=== PATIENT | male | born 1970 | race Caucasian/White ===

== ENCOUNTER 2019-02-25 10:07 | Emergency (ER) | payer MEDICARE ==
[2019-02-25] MEDS ORDERED: ASPIRIN 81 MG CHEWABLE TABLET PO ONE (10:24)
[2019-02-25] MEDS ORDERED: KETOROLAC 30 MG/ML VIAL IVP ONE (10:24)
--- NOTE | 2019-02-25 10:27 | Emergency Department Record ---
History of Present Illness - General Chief Complaint: Back Pain/Injury Stated Complaint: BACK PAIN Time Seen by Provider: 02/25/19 10:24 Source: Patient, Family (mom and sister) Mode of Arrival: EMS - History of Present Illness Initial Comments: patient is having right posterior chest pain which started yesterday and worse with palpation and raising his right arm over his head. patient is anxious because his brother one month ago from cancer in hospise Onset/Timin -: Days(s) Similar Symptoms Previously: No Place: Home Radiation: None Severity scale (1-10): 4 Quality: Aching Consistency: Constant Improves With: None Worsens With: None Context: Unknown Associated Symptoms: Denies other symptoms - Related Data Home Medications Medication Instructions Recorded Confirmed Last Taken Amlodipine Besylate [Norvasc] 10 mg PO DAILY 02/25/19 02/25/19 02/25/19 Atorvastatin Calcium 40 mg PO DAILY 02/25/19 02/25/19 02/25/19 Cetirizine HCl [Allergy Relief] 10 mg PO DAILY 02/25/19 02/25/19 02/25/19 Cholecalciferol (Vitamin D3) 1,000 unit PO DAILY 02/25/19 02/25/19 Unknown [Vitamin D3] Clonazepam 1 mg PO QHS 02/25/19 02/25/19 Unknown Latanoprost 0.005% Opth Kalie 1 drop AFFEYE QHS 02/25/19 02/25/19 Unknown [Xalatan] Metoprolol Succinate [Toprol Xl] 50 mg PO DAILY 02/25/19 02/25/19 02/25/19 Zonisamide 100 mg PO DAILY 02/25/19 02/25/19 02/25/19 Previous Rx's Medication Instructions Recorded Hydroxyzine Pamoate [Vistaril] 25 mg PO Q6H #30 capsule 02/25/19 Allergies Allergy/AdvReac Type Severity Reaction Status Date / Time No Known Drug Allergies Allergy Verified 02/24/14 07:05 Travel Screening - Travel/Exposure Within Last 30 Days Have you traveled within the last 30 days?: No Review of Systems Reviewed: No additional complaints except as noted below Constitutional: Reports: As per HPI. Denies: Chills, Fever, Malaise, Night sweats, Weakness, Weight change Eyes: Reports: As per HPI. Denies: Eye discharge, Eye pain, Photophobia, Vision change ENT: Reports: As per HPI, Congestion. Denies: Dental pain, Ear pain, Epistaxis, Hearing loss, Throat pain Respiratory: Reports: As per HPI. Denies: Cough, Dyspnea, Hemoptysis, Stridor, Wheezes Cardiovascular: Reports: As per HPI, Chest pain. Denies: Arrhythmia, Dyspnea on exertion, Edema, Murmurs, Orthopnea, Palpitations, Paroxysmal nocturnal dyspnea, Rheumatic Fever, Syncope Endocrine: Reports: As per HPI. Denies: Fatigue, Heat or cold intolerance, Polydipsia, Polyuria Gastrointestinal: Reports: As per HPI. Denies: Abdominal pain, Constipation, Diarrhea, Hematemesis, Hematochezia, Melena, Nausea, Vomiting Genitourinary: Reports: As per HPI. Denies: Dysuria, Frequency, Hematuria, Incontinence, Retention, Testicular pain, Testicular mass, Urgency Musculoskeletal: Reports: As per HPI. Denies: Arthralgia, Back pain, Gout, Joint swelling, Myalgia, Neck pain Skin: Reports: As per HPI. Denies: Bruising, Change in color, Change in hair/nails, Lesions, Pruritus, Rash Neurological: Reports: As per HPI. Denies: Abnormal gait, Confusion, Headache, Numbness, Paresthesias, Seizure, Tingling, Tremors, Vertigo, Weakness Psychiatric: Reports: As per HPI. Denies: Anxiety, Auditory hallucinations, Depression, Homicidal thoughts, Suicidal thoughts, Visual hallucinations Hematological/Lymphatic: Reports: As per HPI. Denies: Anemia, Blood Clots, Easy bleeding, Easy bruising, Swollen glands Past Medical History - SOCIAL HISTORY Smoking Status: Never smoker - RESPIRATORY Hx Respiratory Disorders: No - CARDIOVASCULAR Hx Cardio Disorders: Yes Hx Hypertension: Yes Comment:: high cholesterol - NEURO Hx Neuro Disorders: Yes Hx Seizures: Yes - GI Hx GI Disorders: No - Hx Genitourinary Disorders: No - ENDOCRINE Hx Endocrine Disorders: No - MUSCULOSKELETAL Hx Musculoskeletal Disorders: No - PSYCH Hx Psych Problems: No - HEMATOLOGY/ONCOLOGY Hx Hematology/Oncology Disorders: No Family Medical History Any Significant Family History?: Yes Hx Cancer: Grandparents Hx Dementia: Father Hx Diabetes: Father, Mother Hx HTN: Father, Mother Physical Exam - General General Appearance: Alert, Oriented x3, Cooperative, No acute distress, Anxious - Head Head exam: Normal inspection - Eye Eye exam: Normal appearance, PERRL Pupils: Normal accommodation - ENT ENT exam: Normal exam, Mucous membranes moist, Normal external ear exam, Normal orophraynx, TM's normal bilaterally Ear exam: Normal external inspection. negative: External canal tenderness Nasal Exam: Normal inspection. negative: Discharge, Sinus tenderness Mouth exam: Normal external inspection, Tongue normal Teeth exam: Normal inspection. negative: Dental caries Throat exam: Normal inspection. negative: Tonsillar erythema, Tonsillar exudate - Neck Neck exam: Normal inspection, Full ROM. negative: Tenderness - Respiratory Respiratory exam: Normal lung sounds bilaterally. negative: Respiratory distress - Cardiovascular Cardiovascular Exam: Regular rate, Normal rhythm, Normal heart sounds - GI/Abdominal GI/Abdominal exam: Soft, Normal bowel sounds. negative: Tenderness - Rectal Rectal exam: Deferred - exam: Deferred - Extremities Extremities exam: Normal inspection, Full ROM, Normal capillary refill. negative: Tenderness - Back Back exam: Reports: Normal inspection, Full ROM. Denies: Muscle spasm, Rash noted, Tenderness - Neurological Neurological exam: Alert, Normal gait, Oriented X3, Reflexes normal - Psychiatric Psychiatric exam: Normal affect, Normal mood - Skin Skin exam: Dry, Intact, Normal color, Warm Course Vital Signs 02/25/19 10:11 Temperature 98.8 F Pulse Rate 103 H Respiratory 20 Rate Blood Pressure 131/95 Pulse Ox 97 Medical Decision Making - Data Complexity MDM Data: Labs Ordered and/or Reviewed (labs negative with the urine pending), X-Ray Ordered and/or Reviewed (chest xray negative, CT of abd and pelvis essentially neg), EKG Ordered and/or Reviewed (NSR, no acute changes) - Lab Data Result diagrams: 02/25/19 09:55 02/25/19 09:55 Disposition Clinical Impression: Anxiety Thoracic myofascial strain Qualifiers: Encounter type: initial encounter Qualified Code(s): S29.019A - Strain of muscle and tendon of unspecified wall of thorax, initial encounter Disposition: Home, Self-Care Condition: (1) Good Instructions: Thoracic Back Strain (ED) Additional Instructions: follow up with Dr rg next week use ibuprofin or motrin two pills three times a day for pain Prescriptions: Hydroxyzine Pamoate [Vistaril] 25 mg PO Q6H #30 capsule Forms: Patient Portal Access Time of Disposition: 13:56 Quality - Quality Measures Quality Measures: N/A - Blood Pressure Screening Does Patient Have Any of the Following: No, Active Dx of HTN Blood Pressure Classification: Hypertensive Reading Systolic Measurement: 131 Diastolic Measurement: 95 Screening for High Blood Pressure: Patient Exclusion, Hx of HTN [[id number]]
[2019-02-25 10:36] LABS: BASO % 0.5 % (0-6); EOS % 0.6 % (0-6); GRAN % 59.7 % (47-80); HEMATOCRIT 45.2 % (42.0-52.0); HEMOGLOBIN 15.1 gm/dl (14.0-18.0); MEAN CELL VOLUME 89.7 fl (81-97); MEAN CORPUSCULAR HGB CONC 33.4 g/dl (32-36); MEAN PLATELET VOLUME 9.8 fl (7.4-10.4); MONO % 5.2 % (0-9); PLATELET COUNT 376 K/uL (130-400); RED BLOOD COUNT 5.04 M/uL (4.40-5.70); RED CELL DISTRIBUTION WIDTH 13.2 % (11.5-14.5); WHITE BLOOD COUNT W/O DIFF 9.7 K/uL (4.2-12.2)
[2019-02-25 10:44] LABS: BLOOD UREA NITROGEN 14 mg/dL (6-20); CREATININE 1.1 mg/dL (0.7-1.2); EST GLOMERULAR FILTRATION RATE > 60 mL/min
[2019-02-25 10:47] LABS: GLUCOSE,RANDOM 119 mg/dL (74-109)
[2019-02-25 12:09] LABS: URINE APPEARANCE CLEAR; URINE BILIRUBIN NEGATIVE (NEGATIVE); URINE BLOOD TRACE-I (NEGATIVE); URINE COLOR YELLOW; URINE GLUCOSE (UA) NEGATIVE (NEGATIVE); URINE KETONE NEGATIVE (NEGATIVE); URINE LEUKOCYTE ESTERASE NEGATIVE (NEGATIVE); URINE NITRITE NEGATIVE (NEGATIVE); URINE PROTEIN NEGATIVE (NEGATIVE); URINE UROBILINOGEN 0.2 E.U./dL (0.20 - 1.00)
[2019-02-25 12:17] LABS: URINE EPITHELIAL CELLS NONE SEEN (FEW); URINE RBC 0 - 2 (NONE SEEN); URINE WBC NONE SEEN (0-2/hpf)
--- NOTE | 2019-02-27 06:08 | CT SCAN REPORT ---
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 RIGHT FLANK PAIN. TECHNIQUE: Helical CT examination of the abdomen and pelvis is performed without oral or intravenous contrast administration. Lack of oral and IV contrast utilization limits evaluation of the bowel and solid viscera respectively. COMPARISON: None. FINDINGS: The examination is mildly limited by patient motion. There is a somewhat mosaic pattern of the lung bases. This is nonspecific. This can be seen with obstructive small airways disease. No lung base consolidation, pleural effusion, or pericardial effusion. The heart is not enlarged. No focal abnormality is demonstrated within the liver, spleen, pancreas, nor adrenal glands. Mild hepatic steatosis is questioned. The gallbladder is unremarkable and no biliary ductal dilatation is seen. The kidneys are normal in size and position and are smoothly marginated. Minor perinephric fat stranding is identified bilaterally likely chronic. No definite nephrolithiasis nor renal mass. The renal collecting systems are nondilated. No ureteral calculus is visualized. No intra-abdominal nor retroperitoneal lymphadenopathy. The vasculature, as visualized, is normal in appearance. No pelvic mass, lymphadenopathy, or free pelvic fluid. No intrinsic urinary bladder abnormality is seen. No gross bowel dilatation nor bowel wall thickening. The appendix is at least partially visualized and normal in appearance. No free intraperitoneal air. The abdominal wall is intact. No lytic or blastic bone lesion. Mild degenerative changes are scattered throughout the visualized spine. IMPRESSION: 1. THE EXAMINATION IS MILDLY LIMITED BY PATIENT MOTION. 2. NO CT EVIDENCE OF AN ACUTE INTRA-ABDOMINAL NOR INTRAPELVIC PROCESS. NO NEPHROLITHIASIS NOR OBSTRUCTIVE UROPATHY. 3. NORMAL APPENDIX. JOB NUMBER: [id number] [facility]
--- NOTE | 2019-02-27 07:28 | RADIOLOGY REPORT ---
EXAM: CHEST, TWO VIEWS HISTORY: RIGHT SIDED CHEST AND BACK PAIN. TECHNIQUE: Upright PA and lateral views of the chest were obtained. Comparison: Two view chest radiographic examination dated 10/05/16. FINDINGS: The heart is not enlarged and the pulmonary vasculature is nondilated. The lungs and pleural spaces remain clear. No acute osseous abnormality is identified. IMPRESSION: NO RADIOGRAPHIC EVIDENCE OF ACUTE CARDIOPULMONARY DISEASE. [facility]: [id number] [facility]
== END 2019-02-25 14:39 | disposition home or self-care (01) ==
LOC: ER 10:07
DX: S29.019A Strain of muscle and tendon of unspecified wall of thorax, initial encounter (principal); M25.511 Pain in right shoulder; R07.89 Other chest pain; F43.20 Adjustment disorder, unspecified; I10 Essential (primary) hypertension; X58.XXXA Exposure to other specified factors, initial encounter
CPT/HCPCS: 99284 ×2; 96374; 83690; 85025; 85730; 80048; 81001; 84484; 80156; 85379; 71046; 74176; 93005; 93010; J1885